=== PATIENT | female | born 2005 | race Caucasian/White ===

== ENCOUNTER 2024-01-21 13:32 | Emergency (ER) | payer OTHER ==
--- OUTSIDE RECORDS SUMMARY | 2024-01-21 13:36 | XMS REPORT | Continuity of Care Document ---
Author Name Unknown Address [address] [facility] [address] [place] [address] [facility] thconnect Address [address] [facility] [place] [address] Care Team Providers Care Assistant Banquet Manager Name Role Phone Gabriela Nash Primary Care Physician Kayden Crockett Attending Clinician Unavailable [email or web address]_Kapaulettea_S Attending Clinician Unavailbaljinder casarez RADIOLOGY Attending Clinician Unavailable MARCUS GIPSON Attending Clinician Unav MARCUS Yi Attending Clinician Unavailable SELMA CHAND Attending Clinician Unavailable CHRISTOPHER HAYDEN Attending Clinician Unavailab EILEEN Perez Attending Clinician Unavailable David Flores MD Attending Clinician [phone] Melony Arreaga MD Attending Clinician [phone] Eileen Castle MD Attending Clinician [phone] Eeg, Anastasia Pedi Neuro Attending Clinician UnavailJanina Gupta MD Attending Clinician [phone] JANINA LIU Attending Clinician Unavailable Doctor Unassigned, Scribner Attending Clinician U navailable [email or web address]_S Admitting Clinician UnavailSELMA Bailon Admitting Clinician Unavailable Payers Payer Name Policy Type Policy Number Effective Date Expirati on Date Source [facility] [employer] OON [id number] 00:00:00 GENERIC OTHER [id number] 2021 00:00:00 2021 00:00:00 [facility] [id number] [facility] CHIP [id number] 2021 00:00:00 [facility] TOTAL VISION [id number] 2020 00:00:00 Problems Condition Name Condition Details Condition Category Status Onset Date Resolution Date Last Treatment Date Treating Clinician Comments Source Anxiety Anxiety Disease Active 2021-10 00:00: 00 [facility] Cannabis abuse Cannabis abuse Disease Active 2021-10 00:00: 00 [facility] Cocaine abuse with unspecifie d cocaine-in duced disorder Cocaine abuse with unspecifie d cocaine-in duced disorder Disease Active 2021-10 00:00: 00 [facility] Persistent mood (affective ) disorder, unspecifie d Persistent mood (affective ) disorder, unspecifie d Disease Active 2021-10 00:00: 00 [facility] Attention deficit disorder Attention deficit disorder Disease Active 12-22 00:00: 00 [facility] No known active problems No known active problems Disease [facility] Encounter for gynecologi leonardo examinatio n (general) (routine) without abnormal findings Encounter for gynecologi leonardo examinatio n (general) (routine) without abnormal findings Problem Active [facility] Breast pain, right Breast pain, right Problem Active [facility] Pain, joint, knee, left Pain, joint, knee, left Diagnosis Active [facility] Contusion of left knee, initial encounter Contusion of left knee, initial encounter Diagnosis Active [facility] Patellar tendinitis of left knee Patellar tendinitis of left knee Diagnosis Active [facility] Quadriceps tendinitis Quadriceps tendinitis Diagnosis Active [facility] Allergies, Adverse Reactions, Alerts Allergy Name Allergy Type Status Severity Reaction(s) Onset Date Inactive Date Treating Clinician Comments Source NO KNOWN ALLERGIE S Drug Class Active [facility] Social History Social Habit Start Date Stop Date Quantity Comments Source Exposure to SARS-CoV-2 (event) 2022-09-30 00:00:00 2022-10-10 12:37:00 Not sure [facility] Alcohol intake 2022-10-10 00:00:00 2022-10-10 00:00:00 Lifetime non-drinker (finding) [facility] Tobacco use and exposure 2022-08-31 00:00:00 2022-08-31 00:00:00 Smokeless tobacco non-user [facility] Sex Assigned At 2005 00:00:00 2005 00:00:00 [facility] Smoking Status Start Date Stop Date Source Tobacco smoking consumption unknown [facility] Never smoked tobacco [facility] Medications Ordered Medication Name Filled Medication Name Start Date Stop Date Current Medication? Ordering Clinician Indication Dosage Frequency Signature (SIG) Comments Components Source OXcarbazepi ne (Trileptal) 300 MG tablet 2021-10 13:25: 35 Yes 1{tbl} 1 tablet. [facility] OXcarbazepi ne (Trileptal) 300 MG tablet 2021-10 13:25: 35 Yes 1{tbl} 1 tablet. [facility] meloxicam (Mobic) 7.5 MG tablet 2021-10 00:00: 00 10-11 05:59 :00 No [id number] 7.5mg QD Take 1 tablet (7.5 mg total) by mouth 1 (one) time each day. [facility] meloxicam (Mobic) 7.5 MG tablet 2021-10 00:00: 00 10-11 05:59 :00 No [id number] 7.5mg QD Take 1 tablet (7.5 mg total) by mouth 1 (one) time each day. [facility] QUEtiapine (SEROquel) 100 MG tablet 2021-10 00:00: 00 Yes [facility] OXcarbazepi ne (Trileptal) 150 MG tablet 2021-10 00:00: 00 Yes [facility] QUEtiapine (SEROquel) 100 MG tablet 2021-10 00:00: 00 Yes [facility] OXcarbazepi ne (Trileptal) 150 MG tablet 2021-10 00:00: 00 Yes [facility] No known medications 03-24 13:22: 52 No No known medication s [facility] No known medications 03-24 13:22: 54 No No known medication s [facility] No known medications 03-24 13:22: 54 No No known medication s [facility] tretinoin 0.025 % cream 2020-0 06-30 00:00: 00 Yes [id number] Apply to area(s) at bedtime. Skip a night if too irritating . [facility] ity [facility] clindamycin 1 % gel 2020-0 06-30 00:00: 00 Yes [id number] Apply to area(s) every morning. [facility] ity [facility] benzoyl peroxide 10 % external wash 2020-0 06-30 00:00: 00 Yes [id number] Apply to area(s) daily. Use in shower. [facility] ity [facility] tretinoin 0.025 % cream 2020-0 06-30 00:00: 00 Yes [id number] Apply to area(s) at bedtime. Skip a night if too irritating . [facility] ity [facility] clindamycin 1 % gel 2020-0 06-30 00:00: 00 Yes [id number] Apply to area(s) every morning. [facility] external [facility] 2020-0 06-30 00:00: 00 Yes [id number] Apply to area(s) daily. Use in shower. [facility] ity [facility] tretinoin 0.025 % cream 2020-0 06-30 00:00: 00 Yes [id number] Apply to area(s) at bedtime. Skip a night if too irritating . [facility] clindamycin 1 % gel 2020-0 06-30 00:00: 00 Yes [id number] Apply to area(s) every morning. [facility]oyl [facility] 10 % external wash 2020-0 06-30 00:00: 00 Yes [id number] Apply to area(s) daily. Use in shower. [facility] tretinoin 0.025 % cream 2020-0 06-30 00:00: 00 Yes [id number] Apply to area(s) at bedtime. Skip a night if too irritating . [facility] ity [facility] clindamycin 1 % gel 2020-0 06-30 00:00: 00 Yes [id number] Apply to area(s) every morning. [facility] ity [facility] benzoyl peroxide 10 % external wash 2020-0 06-30 00:00: 00 Yes [id number] Apply to area(s) daily. Use in shower. [facility] tretinoin 0.025 % cream 06-30 00:00: 00 Yes [id number] Apply to area(s) at bedtime. Skip a night if too irritating . [facility] clindamycin 1 % gel 06-30 00:00: 00 Yes [id number] Apply to area(s) every morning. [facility] benzoyl peroxide 10 % external wash 06-30 00:00: 00 Yes [id number] Apply to area(s) daily. Use in shower. [facility] No known medications No Un vic ity [facility] No known medications No Un vic ity [facility] No known medications No Un vic ity [facility] No known medications No Un vic ity [facility] No known medications No Un vic ity [facility] No known medications No Un vic ity [facility] No known medications No Un vic ity [facility] No known medications No Un vic ity [facility] No known medications No Un vic ity [facility] No known medications No Un vic ity [facility] No known medications No Un vic ity [facility] No known medications No Un vic ity [facility] Doxycycline Hyclate Doxycycline Hyclate Yes Bryan Verma not defined [facility] Vital Signs Vital Name Observation Time Observation Value Comments S ource Systolic blood pressure 2022-10-10 19:22:00 82 mm[Hg] [facility] Diastolic blood pressure 2022-10-10 19:22:00 47 mm[Hg] [facility] Heart rate 2022-10-10 19:22:00 73 /min [facility] weight 2022-10-10 19:22:00 [facility]896 [facility] BMI 2022-10-10 19:22:00 20.12 [facility] Body mass index (BMI) [Percentile] Per age and sex 2022-10-10 19:22:00 31.04 % [facility] Body temperature 2022-03-24 18:19:00 36.83 Amanda [facility] Body height 2022-03-24 18:19:00 154.9 cm [facility] weight 2022-03-24 18:19:00 [facility]349 [facility] BMI 2022-03-24 18:19:00 20.97 kg/m2 [facility] Body mass index (BMI) [Percentile] Per age and sex 2022-03-24 18:19:00 44.56 % [facility] Systolic blood pressure 2022-03-24 18:19:00 93 mm[Hg] [facility] Diastolic blood pressure 2022-03-24 18:19:00 61 mm[Hg] [facility] Heart rate 2022-03-24 18:19:00 86 /min [facility] Body height 2021-06-30 19:09:00 154.9 cm [facility] Body weight 2021-06-30 19:09:00 49.896 kg [facility] BMI 2021-06-30 19:09:00 20.78 kg/m2 [facility] Body temperature 2021-03-15 18:12:00 37.22 Amanda [facility] Body weight 2021-03-15 18:12:00 51 kg [facility] Head Occipital-frontal circumference by Tape measure 2021-03-15 18:12:00 57 cm [facility] Systolic blood pressure 2020-12-02 19:33:00 102 mm[Hg] [facility] Diastolic blood pressure 2020-12-02 19:33:00 63 mm[Hg] [facility] Heart rate 2020-12-02 19:33:00 77 /min [facility] Body temperature 2020-12-02 19:33:00 37 Amanda [facility] Body height 2020-12-02 19:33:00 155 cm [facility] Body weight 2020-12-02 19:33:00 51.1 kg [facility] BMI 2020-12-02 19:33:00 21.27 kg/m2 [facility] Oxygen saturation in Arterial blood by Pulse oximetry 2020-12-02 19:33:00 98 /min [facility] Procedures Procedure Date / Time Performed Performing Clinicia n Source MR BRAIN WO CONTRAST 2021-03-29 19:45:46 Eileen Castle [facility] EXERCISE STRESS TEST RESULT 2020-12-14 06:01:00 Doctor Unassigned, Scribner [facility] CARDIAC STRESS TST,DR JOSE ANGEL TODD 2020-12-14 00:00:00 Janina Liu [facility] ECHO XTHORACIC,SARAH BETH ANOM,COMPLETE 2020-12-02 00:00:00 Janina Liu [facility] Encounters Start Date/Time End Date/Time Encounter Type Admission Type Attending Clinicians Care Facility Care Department Encounter ID Source 2023-04-03 10:14:28 Outpatient [facility] [id number] [facility] 2022-10-10 12:38:24 Outpatient [facility] [id number] [facility] 2022-09-01 07:12:49 Outpatient [facility] [id number] [facility] 2022-08-31 13:27:01 Outpatient [facility] [id number] [facility] 2021-11-17 11:36:29 Outpatient Kayden Crockett [facility] [id number] [facility] 2024-01-15 11:21:13 2024-01-15 11:21:13 Outpatient [facility] [id number] Tarik Golden 2023-12-18 13:01:36 2023-12-18 13:01:36 Outpatient [facility] [id number] Tarik Golden 2023-09-18 13:34:49 2023-09-18 13:34:[address] [facility] [id number] Tarik Golden 2023-08-29 09:01:43 2023-08-29 09:01:43 Outpatient [facility] [id number] Tarik Golden 2023-08-22 00:00:00 2023-08-22 00:00:00 Outpatient GC_GCBZW_Ka diyala_S [facility] [id number] [facility] 2023-08-21 00:00:00 2023-08-21 00:00:00 Outpatient GC_GCBZW_Ka diyala_S [facility] [id number] [facility] 2023-07-24 11:56:25 2023-07-24 11:56:25 Outpatient [facility] [id number] Tarik Golden 2023-06-13 00:00:00 2023-06-13 00:00:00 Outpatient R RADIOLOGY [facility] [id number] [facility] 2022-10-10 13:15:00 2022-10-10 13:15:00 Office Visit BRANDANMARCUS Ahmadi [facility] [address] [id number] [id number] [facility] 2022-10-03 10:15:00 2022-10-03 10:15:00 Outpatient MARCUS ELIZABETH [facility] [id number] [facility] 2022-08-31 18:35:00 2022-09-02 11:21:00 Outpatient SELMA CHAND [facility] [id number] [facility] 2022-05-17 00:00:00 2022-05-17 00:00:00 Telephone GlennMarcus [facility] [address] [id number] [facility] 2022-05-12 09:30:00 2022-05-12 09:30:00 Telephonic Encounter JaviMarcus mcdonnell [facility] [address] [id number] [facility] 2022-03-24 13:00:00 2022-03-24 14:27:19 Office Visit Marcus Elizabeth [facility] [address] [id number] [facility] 2022-02-23 00:00:00 2022-02-23 00:00:00 Telephone Marcus Elizabeth [facility] [address] [facility] 1.114 [id number] [id number] [id number] [facility] 2021-12-17 10:30:00 2021-12-17 10:30:00 Outpatient R CHRISTOPHER HAYDEN [facility] [id number] [facility] 2021-07-02 13:30:00 2021-07-02 13:30:00 Outpatient R EILEEN CASTLE [facility] [id number] [facility] 2021-06-30 14:02:23 2021-06-30 14:17:23 Office Visit David Flores Kathleen [facility] 1.114 350.1.13.10 [id number] [id number] [facility] 2021-06-30 14:15:00 2021-06-30 14:15:00 Outpatient R [facility] [id number] [facility] 2021-06-30 00:00:00 2021-06-30 00:00:00 Letter (Out) David Flores [facility] 1.114 350.1.13.10 4.2.7.2.686 [id number] [facility] 2021-04-23 00:00:00 2021-04-23 00:00:00 Telephone Eileen Castle [facility] [place] 1..114 350.1.13.10 4.2.7.2.686 [id number] [facility] 2021-04-13 13:00:00 2021-04-13 23:59:00 Hospital Encounter Eileen Castle Eeg, Anastasia Joiner Neuro [facility] [place] 1.114 350.1.13.10 4.2.7.2.686 [id number] [facility] 2021-04-13 13:00:00 2021-04-13 13:00:00 Outpatient R [facility] [id number] [facility] 2021-03-29 13:51:31 2021-03-29 23:59:00 Hospital Encounter Eileen Castle [facility] 1.84.114 350.1.13.10 4.2.7.2.686 [id number] [facility] 2021-03-29 00:00:00 2021-03-29 00:00:00 Outpatient R EILEEN CASTLE [facility] [id number] [facility] 2021-03-15 12:32:48 2021-03-15 14:21:47 Office Visit Eileen Castle 1.840.114 350.1.13.10 4.2.7.2.686 [id number] [facility] 2021-03-15 13:00:00 2021-03-15 13:00:00 Outpatient R EILEEN CASTLE [facility] [id number] [facility] 2020-12-14 12:28:42 2020-12-14 13:28:42 Office Visit Janina Liu [facility] 1.840.114 350.1.13.10 4.2.7.2.686 [id number] [facility] 2020-12-14 13:00:00 2020-12-14 13:00:00 Outpatient R JANINA LIU [facility] [id number] [facility] 2020-12-14 00:00:00 2020-12-14 00:00:00 Orders Only Doctor Unassigned, Scribner [facility] 1.840.114 350.1.13.10 4.2.7.2.686 [id number] [facility] 2020-12-02 13:19:23 2020-12-02 14:56:51 Office Visit Janina Liu [facility] Office Building 1.2.840.114 350.1.13.10 4.2.7.2.686 [id number] [facility] 2020-12-02 13:30:00 2020-12-02 13:30:00 Outpatient R JANINA LIU [facility] [id number] [facility] 2020-06-16 13:45:00 2020-06-16 13:45:00 Outpatient [facility] [id number] [facility] 2020-06-09 16:19:00 2020-06-09 16:19:00 Outpatient [facility] [id number] [facility] 2020-06-01 16:28:00 2020-06-01 16:28:00 Outpatient [facility] [id number] [facility] 2020-06-01 15:00:00 2020-06-01 15:00:00 Outpatient [facility] [id number] [facility] Results Test Description Test Time Test Comments Results Result Co mments Source HEMOGLOBIN [id number] 05:56:58* Test Item Value Reference Range Interpretation Comme nts HEMOGLOBIN A1c (test code = 07586) 4.9 % 4.2-5.6 UNLESS OTHERWISE INDICATED, ALL TESTING PERFORMED AT [facility] [address] [place] [id number] INDUSTRIAL ORGANIZATIONAL PSYCHOLOGIST: GRACE SHI M.D. CLIA NUMBER [id number] [place]. [id number] CBC W/AUTO DIFF WITH [id number] 05:34:57* Test Item Value Reference Range Interpretation Comme nts WBC (test code = 1001) 3.8 K/UL 3.5-11.0 RBC (test code = 1002) 4.18 M/UL 3.80-5.40 HEMOGLOBIN (test code = 1003) 11.7 G/DL 11.5-15.5 HEMATOCRIT (test code = 1004) 35.9 % 34.0-45.0 MCV (test code = 1005) 85.9 fL 80.0-99.0 MCH (test code = 1006) 28.0 PG 25.0-33.0 MCHC (test code = 1007) 32.6 G/DL 31.0-36.0 RDW (test code = 1038) 13.5 % 11.5-15.0 NEUTROPHILS (test code = 1008) 47.0 % LYMPHOCYTES (test code = 1010) 46.7 % MONOCYTES (test code = 1011) 6.0 % EOSINOPHILS (test code = 1012) 0.0 % BASOPHILS (test code = 1013) 0.3 % IMMATURE GRANULOCYTES (test code = 1036) 0.0 % NUCLEATED RBCS (test code = 1065) 0.0 /100 WBC'S See_Comment [Automated messa ge] The system which generated this result transmitted reference range: 0.0. The reference range was not used to interpret this result as normal/abnormal. PLATELET COUNT (test code = 1015) 255 K/UL 130-400 ABSOLUTE NEUTROPHILS (test code = 1066) 1.80 K/UL 1.50-7.50 ABSOLUTE LYMPHOCYTES (test code = 1067) 1.79 K/UL 1.00-4.00 ABSOLUTE MONOCYTES (test code = 1068) 0.23 K/UL 0.20-1.00 ABSOLUTE EOSINOPHILS (test code = 1040) 0.00 K/UL 0.00-0.50 ABSOLUTE BASOPHILS (test code = 1069) 0.01 K/UL 0.00-0.20 ABS IMMATURE GRANULOCYTES (test code = 1020) 0.00 K/UL 0.00-0.10 ABS NUCLEATED RBCS (test code = 62960) 0.00 K/UL 0.00-0.11 COMPREHENSIVE METABOLIC [id number] 05:14:32* Test Item Value Reference Range Interpretation Comme nts GLUCOSE (test code = 2217) 76 MG/DL 70-99 BUN (test code = 2208) 9 MG/DL 6-20 CREATININE (test code = 2213) 0.77 MG/DL 0.50-1.10 eGFR (2020 CKD-EPI) (test code = ) 114 ML/MIN/1.73 >60 CALC BUN/CREAT (test code = 2234) 12 RATIO 6-28 SODIUM (test code = 2230) 143 MEQ/L 133-146 POTASSIUM (test code = 2227) 4.4 MEQ/L 3.5-5.4 CHLORIDE (test code = 2214) 108 MEQ/L 95-107 H CARBON DIOXIDE (test code = 2205) 25 MEQ/L 19-31 CALCIUM (test code = 2208) 9.0 MG/DL 8.5-10.5 PROTEIN, TOTAL (test code = 2228) 6.9 G/DL 6.1-8.3 ALBUMIN (test code = 2200) 4.6 G/DL 3.5-5.2 CALC GLOBULIN (test code = 2239) 2.3 G/DL 2.1-3.7 CALC A/G RATIO (test code = 2233) 2.0 RATIO 1.0-2.6 BILIRUBIN, TOTAL (test code = 2206) <0.2 MG/DL <=1.2 ALKALINE PHOSPHATASE (test code = 2203) 55 U/L 41-120 AST (test code = 2217) 16 U/L 9-40 ALT (test code = 2218) 11 U/L 5-40 LIPID [id number] 05:14:32* Test Item Value Reference Range Interpretation Comme nts CHOLESTEROL (test code = 2209) 178 MG/DL <200 TRIGLYCERIDES (test code = 2232) 45 MG/DL <150 HDL CHOLESTEROL (test code = 222) 74 MG/DL >39 CALC LDL CHOL (test code = 2236) 91 MG/DL <100 NOTE: CALCULATED LDL IS BASED ON NAEEM-SALOMON METHOD WHICHINCLUDES ADJUSTABLE TRIGLYCERIDE:VLDL CHOLESTEROL RATIO.THIS FACTOR VARIES BY MEASURED TRIGLYCERIDE AND NON-HDLCHOLESTEROL CONCENTRATIONS WITH INCREASED CALCULATED LDL SEENIN HIGHER TRIGLYCERIDE OR LOWER NON-HDL SPECIMENS. FOR MOREINFORMATION, SEE CLIENT ANNOUNCEMENT AT [email or web address] RATIO LDL/HDL (test code = 223) 1.23 RATIO <3.22 LIPID [id number] 06:35:35* Test Item Value Reference Range Interpretation Comme nts CHOLESTEROL (test code = 2210) 176 MG/DL <170 H TRIGLYCERIDES (test code = 2232) 76 MG/DL <90 HDL CHOLESTEROL (test code = 2220) 64 MG/DL >45 CALC LDL CHOL (test code = 2237) 95 MG/DL <110 NOTE: CALCULATED LDL IS BASED ON NAEEM-SALOMON METHOD WHICHINCLUDES ADJUSTABLE TRIGLYCERIDE:VLDL CHOLESTEROL RATIO.THIS FACTOR VARIES BY MEASURED TRIGLYCERIDE AND NON-HDLCHOLESTEROL CONCENTRATIONS WITH INCREASED CALCULATED LDL SEENIN HIGHER TRIGLYCERIDE OR LOWER NON-HDL SPECIMENS. FOR MOREINFORMATION, SEE CLIENT ANNOUNCEMENT AT [email or web address] RISK RATIO LDL/HDL (test code = 2238) 1.48 RATIO <3.22 COMPREHENSIVE METABOLIC [id number] 06:35:35* Test Item Value Reference Range Interpretation Comme nts GLUCOSE (test code = 2217) 87 MG/DL 70-99 BUN (test code = 2207) 5 MG/DL 5-18 CREATININE (test code = 2214) 0.84 MG/DL 0.50-1.10 EFFECTIVE 10/04/2021, [facility] HAS IMPLEMENTED THE NKF-ASN RECOMMENDED KD-EPI EGFR REFIT CALCULATION THAT DOES NOT INCLUDE A COEFFICIENT FORRACE. FOR MORE INFORMATION, SEE ANNOUNCEMENT [email or web address] eGFR (2020 CKD-EPI) (test code = 81355) NO CALC ML/MIN/1.73 >60 NOTE: 2020 CKD-EPI is not validated for pediatric populations. For patients less than 19 years old, consider NKF pediatric eGFR calculator [email or web address].o rg/professionals/kdo qi/gfr_[email or web address] CALC BUN/CREAT (test code = 2234) 6 RATIO 6-28 SODIUM (test code = 2230) 140 MEQ/L 133-146 POTASSIUM (test code = 2228) 3.8 MEQ/L 3.5-5.4 CHLORIDE (test code = 2215) 103 MEQ/L 95-107 CARBON DIOXIDE (test code = 2206) 24 MEQ/L 19-31 CALCIUM (test code = 2208) 9.2 MG/DL 8.4-10.2 PROTEIN, TOTAL (test code = 9) 7.4 G/DL 6.0-8.0 ALBUMIN (test code = 2201) 4.8 G/DL 3.6-5.2 CALC GLOBULIN (test code = 2240) 2.6 G/DL 2.1-3.7 CALC A/G RATIO (test code = 2234) 1.8 RATIO 1.0-2.6 BILIRUBIN, TOTAL (test code = 2207) 0.2 MG/DL See_Comment [Automated me ssage] The system which generated this result transmitted reference range: <=1.2. The reference range was not used to interpret this result as normal/abnormal. ALKALINE PHOSPHATASE (test code = 2203) 68 U/L 53-138 AST (test code = 2218) 15 U/L 9-48 ALT (test code = 221) 12 U/L 5-45 TSH, THIRD [id number] 06:32:43* Test Item Value Reference Range Interpretation Comme nts TSH, THIRD GENERATION (test code = 2821) 0.618 UIU/ML 0.500-4.300 UNLESS OTHERWISE INDICATED, ALL TESTING PERFORMED [facility] [address] [place] [address] INDUSTRIAL ORGANIZATIONAL PSYCHOLOGIST: JAVIER CHIANG M.D. CLIA NUMBER [id number] [facility] [place]. [id number] CBC W/AUTO DIFF WITH [id number] 02:12:58* Test Item Value Reference Range Interpretation Comme nts WBC (test code = 1001) 3.1 K/UL 3.5-11.0 L RBC (test code = 1002) 4.19 M/UL 4.00-5.40 HEMOGLOBIN (test code = 1003) 11.7 G/DL 11.0-15.5 HEMATOCRIT (test code = 1004) 34.9 % 33.0-45.0 MCV (test code = 1005) 83.3 fL 78.0-95.0 MCH (test code = 1006) 27.9 PG 24.0-33.0 MCHC (test code = 1007) 33.5 G/DL 31.0-36.0 RDW (test code = 1038) 13.8 % 11.5-15.0 NEUTROPHILS (test code = 1008) 41.3 % NOTE: EFFECTIVE 09/13/2021, REFERENCE INTERVALS AND FLAGGING FORRELATIVE (%) WBC DIFFERENTIAL WILL BE ELIMINATED REDUNDANT TOABSOLUTE COUNTS.SEE [email or web address] [email or web address]_reporting_upda te LYMPHOCYTES (test code = 1010) 47.5 % MONOCYTES (test code = 1011) 8.3 % EOSINOPHILS (test code = 1012) 1.9 % BASOPHILS (test code = 1013) 1.0 % IMMATURE GRANYLOCYTES (test code = 1036) 0.0 % NUCLEATED RBCS (test code = 1065) 0.0 /100 WBC'S See_Comment [Automated message] The system which generated this result transmitted reference range: 0.0. The reference range was not used to interpret this result as normal/abnormal. PLATELET COUNT (test code = 1015) 253 K/UL 150-450 ABSOLUTE NEUTROPHILS (test code = 1066) 1.30 K/UL 1.50-7.50 L ABSOLUTE LYMPHOCYTES (test code = 1067) 1.49 K/UL 1.20-4.00 ABSOLUTE MONOCYTES (test code = 1068) 0.26 K/UL 0.10-0.90 ABSOLUTE EOSINOPHILS (test code = 1040) 0.06 K/UL 0.00-0.50 ABSOLUTE BASOPHILS (test code = 1069) 0.03 K/UL 0.00-0.10 ABS IMMATURE GRANULOCYTES (test code = 1020) 0.00 K/UL 0.00-0.10 ABS NUCLEATED RBCS (test code = 17532) 0.00 K/UL 0.00-0.13 MR BRAIN WO [id number] 21:32:28Unremarkable MRI of the brain.. Preliminary Report Dictated by Resident: Serafin Alvarado MD., have reviewed this study and agree with theabove report.EXAM: MR BRAIN WO CONTRAST HISTORY: Seizure-like activity [R56.9 (ICD-10-CM)]; Episode of alteredconsciousness [R40.4 (ICD-10-CM)] COMPARISON: None TECHNIQUE: Multiplanar multisequence MR imaging of the brain withoutcontrast. FINDINGS: The ventricles and cerebral sulci are normal in caliber and configuration.No midline shift, hydrocephalus or pathological extra-axial fluidcollection is present. The basal cisterns are unremarkable. No restricted diffusion is present to suggest acute infarct. No parenchymalsignal abnormality is present. No abnormal gradient blooming. The T2 flow voids for the major intracranial vessels are unremarkable. No abnormal fluid signal is present in the mastoid air cells or paranasalair sinuses. [facility], Radiant Results Inft User - 03/29/2021 4:33 PM CDTFormatting of this note might be different fromthe original.EXAM: MR BRAIN WO CONTRASTHISTORY: Seizure-like activity [R56.9 (ICD-10-CM)]; Episode of alteredconsciousness [R40.4 (ICD-10-CM)]COMPARISON: NoneTECHNIQUE: Multiplanar multisequence MR im aging of the brain withoutcontrast.FINDINGS:The ventricles and cerebral sulci are normal in caliberand configuration.No midline shift, hydrocephalus or pathological extra-axial fluidcollection is present. The basal cisterns are unremarkable.No restricted diffusion is present to suggest acute infarct. No parenchymalsignal abnormality is present. No abnormal gradient blooming.The T2 flow voids forthe major intracranial vessels are unremarkable. No abnormal fluid signal is present in the mastoidair cells or paranasalair sinuses.IMPRESSIONUnremarkable MRI of the brain..Preliminary Report Dictated by Resident: Serafin Oliveira MD., have reviewed this study and agree with theabove report.[facility]DR JOSE ANGEL TODD2021-02-22 00:00:00Exercise Stress Test Report Curtis Miller had an exercise stress test done for evaluation of dizzinessand near syncope. ?After obtaining the appropriate consent form signed by mother, baseline parameters were obtained. ?The baseline EKG showed normal sinus rhythm with a heart rate of 71 beats per minute. The baseline blood pressure was 98/58 mmHg. Baseline O2 saturation was 98 % on room air. ?The expected maximum heart was 203 beats per minute. ?The 85% target heart rate was 174 beats per minute.Rogelio protocol was used. ?The patient exercised for a total of 11:38 minutes through stage 4. The test was terminated because the patient was fatigued. ?The patient did not report any symptoms duringthe scanning period during the peak of the exercise. ?She was monitored for 5-10 minutes during recovery until she reached the baseline parameters and symptoms disappeared Reviewing the EKG tracings,the patient reached a maximum heart rate of 187 beats per minute, there was no ectopy or ST segmentchanges noted. The patient reached a maximum blood pressure of 132/70 mmHg. ?The patient did not report chest pain, irregular heart beat, lightheadedness and near syncope. ? ImpressionsNormal response to stress Recommendations Clinical correlation and follow up is suggested.Patient may participate in sports without restrictions.Follow up with county historian as needed. Janina Liu MD [facility], [address] [address]Vsly: [phone] [facility]CARDIAC STRESS TST,DR WALTER [id number] 00:00:00Exercise Stress Test Report Curtis Miller had an exercise stress test done for evaluation of dizzinessand near syncope. ?After obtaining the appropriate consent form signed by mother, baseline parameters were obtained. ?The baseline EKG showed normal sinus rhythm with a heart rate of 71 beats per minute. The baseline blood pressure was 98/58 mmHg. Baseline O2 saturation was 98 % on room air. ?The expected maximum heart was 203 beats per minute. ?The 85% target heart rate was 174 beats per minute.Rogelio protocol was used. ?The patient exercised for a total of 11:38 minutes through stage 4. The test was terminated because the patient was fatigued. ?The patient did not report any symptoms duringthe scanning period during the peak of the exercise. ?She was monitored for 5-10 minutes during recovery until she reached the baseline parameters and symptoms disappeared Reviewing the EKG tracings,the patient reached a maximum heart rate of 187 beats per minute, there was no ectopy or ST segmentchanges noted. The patient reached a maximum blood pressure of 132/70 mmHg. ?The patient did not report chest pain, irregular heart beat, lightheadedness and near syncope. ? ImpressionsNormal response to stress Recommendations Clinical correlation and follow up is suggested.Patient may participate in sports without restrictions.Follow up with county historian as needed. Janina Liu MD [facility], [address] [address]Azgj: [phone] [facility]umntznxG[facility] SARAH BETH CALDERON COMPLETE2021-02-10 00:00:00Echocardiogram Report Patient: Curtis Miller Date of Study: 12/02/2020 Age: [age] year old Sex: female : 2005 Height: 61.02" (155 cm)Weight:51.1 kg (112 lb 10.5 oz)BSA: Bodysurface area is 1.48 meters squared.Location: OutpatientType: TTEReferring: Eliazar Bridges MD Reading: Janina Liu MD [employer] Developer: EVELINA Persaud Indication: presyncope and syncope M-Mode Echocardiogram IVSD: 0.5 cmLVIDd: 4.45 cmLVIDs: 2.86 cmLVPWD: 0.5 cmSF: 35.7 % 2-D ECHOCARDIOGRAM Cardiac situs was normal.The atrioventricular and the ventricular arterial relationship is normal.The conotruncus was normal and the great vessels were normally related. Two atrioventricular and two semilunar valves are seen.The left atrial chamber size is normal.The left ventricle chamber size is normal.There is no left ventricular hypertrophy observed.The right atrial cavity size is normal.The right ventricular cavity size is normal.The right ventricle wall thickness is normal.The mitral valve appears normal in structure and function.The tricuspid valve appears normal in structure and function.The aortic valve appears normal in structure and function.The coronary arteries appear normal.The aortic root, transverse and descending aorta appear normal.The major branches of the aortic arch appear normal. The pulmonic valve appears normal in structure and function.The main pulmonary artery bifurcated normally.The atrial septum appears normal and intact.Indices of left ventricular function were normal.There is no pericardial effusion, vegetations, tumors or thrombi. DOPPLER/COLOR DOPPLER AORTIC VALVE- There is no evidence of aortic insufficiency or stenosis.MITRAL VALVE- There is no mitral regurgitation observed.TRICUSPID VALVE- There is trace tricuspid regurgitation.PULMONIC VALVE- There is no evidence of pulmonary insufficiency or stenosis.Systemic venous return was normal.Normal pulmonary venous return to the left atrium.Normal Doppler profile across descending thoracic aorta. CONCLUSION1- Normal 4 chamber intracardiac anatomy and function2- Trace tricuspid insufficiency Arelis Liu MD, PhD, FACC, FAAP [facility], [address] 4th [place] [address]Gshb: [phone] ShbhhbrgdzNacogdoches [facility] SARAH BETH CADLERON COMPLETE2021-02-10 00:00:00Echocardiogram Report Patient: Curtis Miller Date of Study: 12/02/2020 Age: [age] year old Sex: female : 2005 Height: 61.02" (155 cm)Weight:51.1 kg (112 lb 10.5 oz)BSA: Bodysurface area is 1.48 meters squared.Location: OutpatientType: TTEReferring: Eliazar Bridges MD Reading: Janina Liu MD [employer]: EVELINA Persaud Indication: presyncope and syncope M-Mode Echocardiogram IVSD: 0.5 cmLVIDd: 4.45 cmLVIDs: 2.86 cmLVPWD: 0.5 cmSF: 35.7 % 2-D ECHOCARDIOGRAM Cardiac situs was normal.The atrioventricular and the ventricular arterial relationship is normal.The conotruncus was normal and the great vessels were normally related. Two atrioventricular and two semilunar valves are seen.The left atrial chamber size is normal.The left ventricle chamber size is normal.There is no left ventricular hypertrophy observed.The right atrial cavity size is normal.The right ventricular cavity size is normal.The right ventricle wall thickness is normal.The mitral valve appears normal in structure and function.The tricuspid valve appears normal in structure and function.The aortic valve appears normal in structure and function.The coronary arteries appear normal.The aortic root, transverse and descending aorta appear normal.The major branches of the aortic arch appear normal. The pulmonic valve appears normal in structure and function.The main pulmonary artery bifurcated normally.The atrial septum appears normal and intact.Indices of left ventricular function were normal.There is no pericardial effusion, vegetations, tumors or thrombi. DOPPLER/COLOR DOPPLER AORTIC VALVE- There is no evidence of aortic insufficiency or stenosis.MITRAL VALVE- There is no mitral regurgitation observed.TRICUSPID VALVE- There is trace tricuspid regurgitation.PULMONIC VALVE- There is no evidence of pulmonary insufficiency or stenosis.Systemic venous return was normal.Normal pulmonary venous return to the left atrium.Normal Doppler profile across descending thoracic aorta. CONCLUSION1- Normal 4 chamber intracardiac anatomy and function2- Trace tricuspid insufficiency Arelis Liu MD, PhD, FACC, FAAP [facility] [place] [address]Bugk: [phone] HrrxagsifoGarden [facility] Hospital XTHORACIC,ANT PONCE2021-02-10 00:00:00Echocardiogram Report Patient: Curtis Miller Date of Study: 12/02/2020 Age: [age] year old Sex: female : 2005 Height: 61.02" (155 cm)Weight:51.1 kg (112 lb 10.5 oz)BSA: Bodysurface area is 1.48 meters squared.Location: OutpatientType: TTEReferring: Eliazar Bridges MD Reading: Janina Liu MD [employer]: EVELINA Persaud Indication: presyncope and syncope M-Mode Echocardiogram IVSD: 0.5 cmLVIDd: 4.45 cmLVIDs: 2.86 cmLVPWD: 0.5 cmSF: 35.7 % 2-D ECHOCARDIOGRAM Cardiac situs was normal.The atrioventricular and the ventricular arterial relationship is normal.The conotruncus was normal and the great vessels were normally related. Two atrioventricular and two semilunar valves are seen.The left atrial chamber size is normal.The left ventricle chamber size is normal.There is no left ventricular hypertrophy observed.The right atrial cavity size is normal.The right ventricular cavity size is normal.The right ventricle wall thickness is normal.The mitral valve appears normal in structure and function.The tricuspid valve appears normal in structure and function.The aortic valve appears normal in structure and function.The coronary arteries appear normal.The aortic root, transverse and descending aorta appear normal.The major branches of the aortic arch appear normal. The pulmonic valve appears normal in structure and function.The main pulmonary artery bifurcated normally.The atrial septum appears normal and intact.Indices of left ventricular function were normal.There is no pericardial effusion, vegetations, tumors or thrombi. DOPPLER/COLOR DOPPLER AORTIC VALVE- There is no evidence of aortic insufficiency or stenosis.MITRAL VALVE- There is no mitral regurgitation observed.TRICUSPID VALVE- There is trace tricuspid regurgitation.PULMONIC VALVE- There is no evidence of pulmonary insufficiency or stenosis.Systemic venous return was normal.Normal pulmonary venous return to the left atrium.Normal Doppler profile across descending thoracic aorta. CONCLUSION1- Normal 4 chamber intracardiac anatomy and function2- Trace tricuspid insufficiency Arelis Liu MD, PhD, FACC, FAAP [facility] [address]Qflb: [phone] TqzodjsllpStephens [facility] Hospital
[2024-01-21] MEDS ORDERED: NA CHLORIDE 0.9% 1,000 ML ONE (14:18)
[2024-01-21 14:36] LABS: Absolute Lymphocytes (CBC) 1.4 K/uL (0.7-4.9); Absolute Monocytes 0.4 K/uL (0.1-1.3); Absolute Neutrophil 4.2 K/uL (1.8-8.0); Basophils % 0.2 % (0-1.3); Hematocrit 35.3 % (36.0-45.0); Hemoglobin 11.6 g/dL (12.0-15.0); Lymphocytes % 23.5 % (15.3-44.8); MCH 28.6 pg (27.0-35.0); MCHC 32.9 g/dL (32.0-36.0); MPV 7.9 fL (7.6-11.3); Monocytes % 6.2 % (3.3-12.3); Neutrophils % 70.1 % (41.7-73.7); Platelets 257 thou/uL (152-406); RBC Red Blood Cell Count 4.06 M/uL (3.86-4.86); Red Cell Distribution Width 14.8 % (12.1-15.2)
[2024-01-21 14:56] LABS: Specific Gravity > 1.030 (1.005-1.030); Sqamous Epithelial <5 /HPF (None Seen); Urine Bacteria None Seen /HPF (<20); Urine Bilirubin NEGATIVE (Negative); Urine Blood 2+ (Negative); Urine Clarity Clear (Clear); Urine Color Yellow (Yellow); Urine Culture Reflex Order NOT NEEDED; Urine Glucose NEGATIVE (Negative); Urine Ketones NEGATIVE (Negative); Urine Microscopic Reflex YN ORDER UMIC; Urine Mucus 4+ /HPF (None Seen); Urine Nitrite NEGATIVE (Negative); Urine Protein 1+ (Negative); Urine Urobilinogen Normal (Normal); Urine WBC <5 /HPF (<5); Urine pH 6.5 (5.0-7.0)
[2024-01-21 14:58] LABS: Albumin 3.9 g/dL (3.4-5.0); Albumin/Globulin Ratio 1.3 (1.1-1.8); Anion Gap 7.6 mEq/L (5.0-15.0); Bilirubin Total 0.3 mg/dL (0.2-1.0); Globulin 3.1 g/dL (2.3-3.5); Potassium 3.6 mEq/L (3.5-5.1)
--- NOTE | 2024-01-21 15:35 | RAD REPORT ---
EXAM DESCRIPTION: CTAbdomen Pelvis W Contrast - 01/21/2024 3:26 pm CLINICAL HISTORY: ABD PAIN COMPARISON: No comparisons TECHNIQUE: CT of the abdomen and pelvis was performed. All CT scans are performed using dose optimization technique as appropriate and may include automated exposure control or mA/KV adjustment according to patient size. FINDINGS: Lower chest: No acute abnormality. Liver: No acute abnormality or suspicious lesions. Biliary: No biliary ductal dilatation. Stomach: No significant focal abnormality. Duodenum: No significant focal abnormality. Pancreas: No significant abnormality. Spleen: No significant abnormality. Adrenal: No suspicious lesions. Kidney/ureter: No hydronephrosis. No renal calculi. Retroperitoneum: No retroperitoneal adenopathy. Vascular: No aneurysm. Bowel: No significant focal abnormality. No appendicitis. Peritoneum: Small volume of pelvic free fluid. Bladder: Grossly unremarkable. Reproductive: No adnexal masses. Bones: No acute fracture. Other: n/a IMPRESSION: No acute intra-abdominal or pelvic finding. No appendicitis. Pelvic free fluid which may be physiologic.
--- NOTE | 2024-01-21 15:39 | EDPHYS ---
Physician Documentation [facility] Name: Curtis Miller Age: 18 yrs Sex: Female : 2005 Arrival Date: 01/21/2024 Time: 13:32 Bed 10 Private MD: ED Physician Patrick Braden HPI: 01/20 14:18 This 18 yrs old Female presents to ER via Ambulatory with complaints of Abdominal sp3 Cramping. 14:18 18-year-old female with history of bipolar disease and anxiety now presents to the ED sp3 with chief complaint menstrual cramps and possible constipation. Patient states her last bowel movement was yesterday however it was a very small amount. She is also on her menses and states she is having abdominal cramping. She denies any other symptoms including dark stools, vomiting, upper abdominal pain, chest pain, shortness of breath, syncope, near syncope, rash, or any other signs or symptoms on ROS at this time.. 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 - Social history:: Smoking status: Reported history of juuling and/or vaping. Patient uses street drugs, marijuana. ROS: 14:21 Constitutional: Negative for fever, chills, and weight loss, Eyes: Negative for injury, sp3 pain, redness, and discharge, Neck: Negative for injury, pain, and swelling, Cardiovascular: Negative for chest pain, palpitations, and edema, Respiratory: Negative for shortness of breath, cough, wheezing, and pleuritic chest pain, Back: Negative for injury and pain, MS/Extremity: Negative for injury and deformity, Skin: Negative for injury, rash, and discoloration, Neuro: Negative for headache, weakness, numbness, tingling, and seizure, Psych: Negative for depression, anxiety, suicide ideation, homicidal ideation, and hallucinations, Endocrine: Negative for neck swelling, polydipsia, polyuria, polyphagia, and marked weight changes, Hematologic/Lymphatic: Negative for swollen nodes, abnormal bleeding, and unusual bruising, 14:21 All other systems are negative, Exam: 14:22 Constitutional: This is a well developed, well nourished patient who is awake, alert, sp3 and in no acute distress. Head/Face: Normocephalic, atraumatic. Eyes: Pupils equal round and reactive to light, extra-ocular motions intact. Lids and lashes normal. Conjunctiva and sclera are non-icteric and not injected. Cornea within normal limits. Periorbital areas with no swelling, redness, or edema. ENT: Nares patent. No nasal discharge, no septal abnormalities noted. External auditory canals are clear. Oropharynx with no redness, swelling, or masses, exudates, or evidence of obstruction, uvula midline. Mucous membranes moist. Neck: Trachea midline, no thyromegaly or masses palpated, and no cervical lymphadenopathy. Supple, full range of motion without nuchal rigidity, or vertebral point tenderness. No Meningismus. Chest/axilla: Normal chest wall appearance and motion. Nontender with no deformity. No lesions are appreciated. Cardiovascular: Regular rate and rhythm with a normal S1 and S2. No gallops, murmurs, or rubs. Normal PMI, no JVD. No pulse deficits. Respiratory: Lungs have equal breath sounds bilaterally, clear to auscultation and percussion. No rales, rhonchi or wheezes noted. No increased work of breathing, no retractions or nasal flaring. Back: No spinal tenderness. No costovertebral tenderness. Full range of motion. Skin: Warm, dry with normal turgor. Normal color with no rashes, no lesions, and no evidence of cellulitis. MS/ Extremity: Pulses equal, no cyanosis. Neurovascular intact. Full, normal range of motion. Neuro: Awake and alert, GCS 15, oriented to person, place, time, and situation. Cranial nerves II-XII grossly intact. Motor strength 5/5 in all extremities. Sensory grossly intact. Cerebellar exam normal. Normal gait. Psych: Awake, alert, with orientation to person, place and time. Behavior, mood, and affect are within normal limits. 14:22 Abdomen/GI: Abdomen is soft with minimal tenderness in the lower quadrants without peritoneal signs, rebound or guarding. No distention noted., Vital Signs: 13:48 BP 128 / 82; Pulse 85; Resp 17 S; Temp 98.1; Pulse Ox 100% on R/A; Weight 44.91 kg (R); as6 Height 5 ft. 1 in. (R); Pain 5/10; 15:40 BP 132 / 82; Pulse 86; Resp 18; Temp 98.1; Pulse Ox 99% ; db 13:48 Body Mass Index 18.71 (44.91 kg, 154.94 cm) as6 13:48 Pain Scale: Adult as6 MDM: 13:57 Patient medically screened. sp3 14:23 Data reviewed: vital signs, nurses notes, lab test result(s), radiologic studies. ED sp3 course: 18-year-old female with abdominal pain. Differential diagnosis includes constipation, menstrual cramps, other abdominal pathology and to a much lower degree SBO or other process. Also UTI and pyelonephritis although clinically low likelihood. Workup will include CT scan of the abdomen pelvis, urinalysis, hCG, laboratory values and general observation.. 15:38 ED course: All labs reviewed demonstrate no significant abnormality. CT scan of the sp3 abdomen pelvis is also negative. We will discharge patient home on diclofenac and follow-up with PCP.. 01/20 14:01 Order name: CBC with Diff; Complete Time: 15: sp3 01/20 14:01 Order name: CMP; Complete Time: 15: sp3 01/20 14:01 Order name: Lipase; Complete Time: 15: sp3 01/20 14:01 Order name: Test, Urine; Complete Time: 15:01 sp3 01/20 14:01 Order name: Urinalysis w/ reflexes; Complete Time: 15: sp3 01/20 14:01 Order name: CT Abd/Pelvis - IV Contrast Only; Complete Time: 15:37 sp3 01/20 14:01 Order name: IV Saline Lock; Complete Time: 14:29 sp3 01/20 14:01 Order name: Labs collected and sent; Complete Time: 14: sp3 Administered Medications: 14:27 Drug: NS 0.9% IV 1000 ml IV at 1 bolus Per protocol; 1000 mL bolus Route: IV; Rate: 1 db bolus; Site: left antecubital; 15:40 Follow up: Response: No adverse reaction; IV Status: Completed infusion; IV Intake: db 1000ml Disposition Summary: 03/31/24 15:38 Discharge Ordered Notes: Location: Home sp3 Condition: Stable sp3 Diagnosis - Abdominal pain, menstrual cramp sp3 Followup: sp3 - With: Private Physician - When: Upon discharge from the Emergency Department - Reason: Continuance of care Discharge Instructions: - Discharge Summary Sheet sp3 - Abdominal Pain, Adult sp3 Forms: - Medication Reconciliation Form sp3 - Thank You Letter sp3 - Antibiotic Education sp3 - Prescription Opioid Use sp3 - Patient Portal Instructions sp3 - Leadership Thank You Letter sp3 Prescriptions: - Diclofenac Sodium 75 mg Oral Tablet Sustained Release - take 1 tablet ORAL route 2 times per day; 30 tablet; Refills: 0, Product sp3 Selection Permitted Signatures: Dispatcher [employer] EDMS Patrick Braden MD MD sp3 Rehan Parra RN RN as6 Gayle Castro RN RN db Corrections: (The following items were deleted from the chart) 14:02 14:02 CBC+H.LAB.BRZ ordered. EDMS EDMS 14:02 14:02 COMPREHENSIVE METABOLIC PANEL+C.LAB.BRZ ordered. EDMS EDMS 14:02 14:02 LIPASE+C.LAB.BRZ ordered. EDMS EDMS 14:02 14:02 Test, Urine+UC.LAB.BRZ ordered. EDMS EDMS 14:02 14:02 Urinalysis+U.LAB.BRZ ordered. EDMS EDMS
--- NOTE | 2024-01-21 15:39 | ER ---
Nurse's Notes [facility] Name: Curtis Miller Age: 18 yrs Sex: Female : 2005 Arrival Date: 01/21/2024 Time: 13:32 Bed 10 Private MD: Diagnosis: Abdominal pain, menstrual cramp Presentation: 01/20 13:48 Chief complaint: Patient states: "unbearable" period cramps and constipation. pt also as6 reports that she hasn't been eating and has lost a lot of weight. Coronavirus screen: At this time, the client does not indicate any symptoms associated with coronavirus-19. Ebola Screen: No symptoms or risks identified at this time. Initial Sepsis Screen: Does the patient meet any 2 criteria? No. Patient's initial sepsis screen is negative. Does the patient have a suspected source of infection? No. Patient's initial sepsis screen is negative. Risk Assessment: Do you want to hurt yourself or someone else? Patient reports no desire to harm self or others. Onset of symptoms was January 20, 2024. 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 - Social history:: Smoking status: Reported history of juuling and/or vaping. Patient uses street drugs, marijuana. Screenin:30 [facility] ED Fall Risk Assessment (Adult) History of falling in the last 3 months, db including since admission No falls in past 3 months (0 pts) Confusion or Disorientation No (0 pts) Intoxicated or Sedated No (0 pts) Impaired Gait No (0 pts) Mobility Assist Device Used No (0 pt) Altered Elimination No (0 pt) Score/Fall Risk Level 0 - 2 = Low Risk Oriented to surroundings, Maintained a safe environment. Abuse screen: Denies threats or abuse. Denies injuries from another. Nutritional screening: No deficits noted. Tuberculosis screening: No symptoms or risk factors identified. Assessment: 14:25 Reassessment: Patient appears in no apparent distress at this time. Patient and/or db family updated on plan of care and expected duration. Pain level reassessed. Patient is alert, oriented x 3, equal unlabored respirations, skin warm/dry/pink. General: Appears in no apparent distress. comfortable, Behavior is calm, cooperative. Pain: Complains of pain in abdomen. Neuro: Level of Consciousness is awake, alert, obeys commands, Oriented to person, place, time, situation. Cardiovascular: No deficits noted. Respiratory: Airway is patent Respiratory effort is even, unlabored, Respiratory pattern is regular, symmetrical. GI: Bowel sounds present X 4 quads. Abd is soft Reports cramping. : No deficits noted. No signs and/or symptoms were reported regarding the genitourinary system. EENT: No deficits noted. No signs and/or symptoms were reported regarding the EENT system. 14:41 Reassessment: Patient appears in no apparent distress at this time. Patient and/or db family updated on plan of care and expected duration. Pain level reassessed. Patient is alert, oriented x 3, equal unlabored respirations, skin warm/dry/pink. 15:40 Reassessment: Patient appears in no apparent distress at this time. Patient and/or db family updated on plan of care and expected duration. Pain level reassessed. Patient is alert, oriented x 3, equal unlabored respirations, skin warm/dry/pink. Patient states feeling better. Patient states symptoms have improved. General: Appears in no apparent distress. comfortable, Behavior is calm, cooperative. Vital Signs: 13:48 BP 128 / 82; Pulse 85; Resp 17 S; Temp 98.1; Pulse Ox 100% on R/A; Weight 44.91 kg (R); as6 Height 5 ft. 1 in. (R); Pain 5/10; 15:40 BP 132 / 82; Pulse 86; Resp 18; Temp 98.1; Pulse Ox 99% ; db 13:48 Body Mass Index 18.71 (44.91 kg, 154.94 cm) as6 13:48 Pain Scale: Adult as6 ED Course: 13:35 Patient arrived in ED. im 13:37 Patrick Braden MD is Attending Physician. sp3 13:51 Triage completed. as6 13:52 Arm band placed on. as6 14:13 Gayle Castro, RN is Primary Nurse. db 14:27 Initial lab(s) drawn, by me, sent to lab. Inserted saline lock: 22 gauge in left db antecubital area, using aseptic technique. Blood collected. 14:30 Patient has correct armband on for positive identification. Bed in low position. Call db light in reach. Side rails up X 1. Provided Education on: pain and labs. Pulse ox on. NIBP on. Warm blanket given. 15:28 CT Abd/Pelvis - IV Contrast Only In Process Unspecified. EDMS 15:49 No provider procedures requiring assistance completed. IV discontinued, intact, db bleeding controlled, No redness/swelling at site. Administered Medications: 14:27 Drug: NS 0.9% IV 1000 ml IV at 1 bolus Per protocol; 1000 mL bolus Route: IV; Rate: 1 db bolus; Site: left antecubital; 15:40 Follow up: Response: No adverse reaction; IV Status: Completed infusion; IV Intake: db 1000ml Medication: 15:49 VIS not applicable for this client. db Intake: 15:40 IV: 1000ml; Total: 1000ml. db Outcome: 15:38 Discharge ordered by sp3 15:49 Discharged to home ambulatory, db 15:49 Condition: stable 15:49 Discharge instructions given to patient, Instructed on discharge instructions, Prescriptions given X 1, 15:51 Patient left the ED. db Signatures: Dispatcher [employer] Patrick Levy MD MD sp3 Rehan Parra, RN RN as6 Gayle Castro, RN RN db Diane Sanchez
[2024-01-21 19:16] VITALS: BP 132/82; TEMP 98.1; O2SAT 99
== END 2024-01-21 15:51 | disposition home or self-care (01) ==
LOC: ER 13:32
DX: N94.6 Dysmenorrhea, unspecified (principal)
CPT/HCPCS: 85025; 81001; 36415; 81025; 83690; 80053; 74177; 96360; 99284; Q9967; J7030